=== PATIENT | female | born 1990 | race Caucasian/White ===

== ENCOUNTER 2018-07-17 09:59 | Emergency (ER) | payer OTHER, SELFPAY ==
[2018-07-17 10:08] VITALS: BP 125/78; PULSE 91; RESP 16; TEMP 36.6; O2SAT 97; BMI 36.9
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
[2018-07-17 11:54] VITALS: RESP 18
== END 2018-07-17 11:55 | disposition home or self-care (01) ==
PROVIDERS: Emergency Provider Emergency Medicine; Family Provider Family Medicine; PCP Family Medicine
DX: O9A.219 Injury, poisoning and certain other consequences of external causes complicating pregnancy, unspecified trimester (principal); S06.0X1A Concussion with loss of consciousness of 30 minutes or less, initial encounter; S00.83XA Contusion of other part of head, initial encounter; S00.81XA Abrasion of other part of head, initial encounter; S80.811A Abrasion, right lower leg, initial encounter; S70.311A Abrasion, right thigh, initial encounter; S90.512A Abrasion, left ankle, initial encounter; S71.102A Unspecified open wound, left thigh, initial encounter; S81.802A Unspecified open wound, left lower leg, initial encounter; Z3A.00 Weeks of gestation of pregnancy not specified; R40.2410 Glasgow coma scale score 13-15, unspecified time; V80.42XA Occupant of animal-drawn vehicle injured in collision with car, pick-up truck, van, heavy transport vehicle or bus, initial encounter; Y93.9 Activity, unspecified; Y92.9 Unspecified place or not applicable; Z28.3 Underimmunization status
CPT/HCPCS: 70450; 99284

== ENCOUNTER 2023-03-17 17:30 | Emergency (ER) | payer OTHER, SELFPAY ==
[2023-03-17 17:31] VITALS: BP 111/75; PULSE 90; RESP 18; TEMP 36.4; O2SAT 99; BMI 35.2
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
[2023-03-17] MEDS: Lidocaine 1% /Epi 1:100 (20ml) 20 ML Vial INFILT (17:59)
[2023-03-17] MEDS: Lidocaine/Epi/Tetracaine 50 ML 1 APPLIC TOPICAL (17:59)
--- OUTSIDE RECORDS SUMMARY | 2023-03-17 18:33 | XMS RPT_ITS | CCD ---
Author Name Unknown Address [facility] [address] [place] [address] Organization [facility] Care Team Providers Care Field Spec Name Role Phone SRINIVASA RAI MD Attending Unavailable PHYSICIAN, NONE Primary Care Unavailable PHYSICIAN, NONE Primary Care Physician Unavailab le Medications Current Medications Medication Drug Class(es) Dates Sig (Normalized) Sig (Original) acetaminophen 325 mg oral capsule (1 source) Start: 02-16-2019 Tylenol 325 mg oral capsule Dose : 650 mg =, Oral, q6h, PRN Pain, scale 1-3, 0 Refill(s) Start Date: 02/16/19 Status: Ordered ibuprofen 600 mg oral tablet (1 source) Nonsteroidal Anti-inflammatory Drug Start: 02-16-2019 Motrin Dose : 600 mg = 1 tab(s), Oral, q6h, PRN uterine cramping, 0 Refill(s) Start Date: 02/16/19 Status: Ordered Multivitamins (1 source) Start: 02-14-2019 take 1 tablet by mouth once daily Multivitamins Dose = 1 tab(s), Oral, qDay, 0 Refill(s) Start Date: 02/14/19 Status: Ordered Problems Problem Classification Problem Date Documented Da te Episodic/Chronic Diabetes or abnormal glucose tolerance complicating ; childbirth; or the puerperium (1 source) Gestational diabetes mellitus, class A>2< 02-14-2019 Episodic Immunizations and screening for infectious disease (1 source) Rubella non-immune 02-14-2019 Episodic Other and delivery including normal (1 source) 07-21-2022 Episodic Results Test Name Value Interpretation Reference Range Facil ity Vital Signs Date Time Vital Sign Value Performing Clinician Faci lity 07-21-2022 17:32-0400 Diastolic Blood Pressure Non-Invasive 68 1 SRINIVASA RAI MD [facility] 07-21-2022 17:32-0400 Heart rate 80 /min SRINIVASA RAI MD [facility] 07-21-2022 17:32-0400 Respiratory rate 20 /min SRINIVASA RAI MD [facility] 07-21-2022 17:32-0400 Systolic Blood Pressure Non-Invasive 117 1 SRINIVASA RAI MD [facility] 07-21-2022 16:21-0400 Diastolic Blood Pressure Non-Invasive 67 1 SRINIVASA RAI MD [facility] 07-21-2022 16:21-0400 Heart rate 84 /min SRINIVASA RAI MD [facility] 07-21-2022 16:21-0400 Respiratory rate 20 /min SRINIVASA RAI MD [facility] 07-21-2022 16:21-0400 Systolic Blood Pressure Non-Invasive 109 1 SRINIVASA RAI MD [facility] 07-21-2022 16:15-0400 Diastolic Blood Pressure Non-Invasive 70 1 SRINIVASA RAI MD [facility] 07-21-2022 16:15-0400 Heart rate 76 /min SRINIVASA RAI MD [facility] 07-21-2022 16:15-0400 Respiratory rate 17 /min SRINIVASA RAI MD [facility] 07-21-2022 16:15-0400 Systolic Blood Pressure Non-Invasive 97 1 SRINIVASA RAI MD [facility] 07-21-2022 15:10-0400 Body temperature 98.24 [degF] SRINIVASA RAI MD [facility] 07-21-2022 15:10-0400 Heart rate 68 /min SRINIVASA RAI MD [facility] Encounters Encounter Date Encounter Type Care Provider Facility Start: 07-21-2022 End: 07-21-2022 Emergency department patient visit SRINIVASA RAI MD Facility:B Start: 07-21-2022 End: 07-21-2022 Emergency department patient visit SRINIVASA RAI MD [facility] Payers Date Payer Category Payer Self-pay 1991 Unknown [id number] Social History Date Type Detail Facility Start: 02-14-2019 Tobacco smoking status Never s moked tobacco (finding) [facility] Sex Assigned At Female [facility] Functional Status Date Assessment Result Facility 07-21-2022 Functional Status Independent [facility] spital [facility] 07-21-2022 Functional Status Standard Safet y ID band on, Call device within reach, Bed in low position, Wheels locked [facility] Mental Status Date Assessment Result Facility 07-21-2022 Mental Status Orientation Oriented x 4 [facility] 07-21-2022 Mental Status [facility] Discharge instructions 07-21-2022 Note Date & Type Note Facility 07-21-2022 Hospital Discharg e instructions Patient Education 07/21/2022 17:27:43 Understanding Miscarriage: During a Miscarriage Understanding Miscarriage: During a Miscarriage No two miscarriages are alike. Because of this, your healthcare provider will talk with you about the most appropriate treatment for you. If you re in good health and early in the , your body may expel all the tissue on its own. If your body doesn t expel all the tissue, your healthcare provider may recommend treatment to prevent infection and severe bleeding (hemorrhaging). What happens during miscarriage Some miscarriages happen without any signs or symptoms. Most miscarriages, however, start with bleeding and cramping, which may increase over time. The cramps may get very strong. This is normal when a miscarriage is happening. Cramping widens the passage (cervix) that tissue from the uterus must pass through to leave your body. Your healthcare provider may ask you for a sample of the tissue for lab testing. This is to make sure that the cells being shed from your body are normal. Diagnosis To confirm the miscarriage, your healthcare provider will do a pelvic exam. Your healthcare provider might order a blood test to measure the levels of a hormone (hCG). He or she may also have you get an ultrasound test to find out if all of the tissue has passed from the uterus. If a miscarriage happens very early in the , an ultrasound is not needed. Treatment If any tissue remains in the uterus, your healthcare provider may suggest the following measures depending on your particular situation: Medicine. This is prescribed for you to take at home. The medicine causes the uterus to expel any remaining tissue. Take the medicine exactly as directed. Dilation and curettage (D & C). This procedure is done in your healthcare provider s office or at the hospital. You are given medicine to prevent pain or to allow you to relax or sleep during the procedure. The healthcare provider uses instruments to widen the cervix (dilate). Tissue and blood that line the uterus are then removed (curettage). Be sure you talk to your healthcare provider about the risks and benefits of these treatments. If you have Rh-negative blood If your blood is Rh negative, you may need treatment with Rho(D) immune globulin. This injection prevents substances in your blood from attacking the baby s blood during a future . Your healthcare provider can tell you more. Follow-up care Keep all follow-up appointments. These are needed to make sure that you are healing well. During these visits, mention if you re feeling very sad or depressed. Your healthcare provider can suggest counseling or other resources to help you. When to seek medical care Contact your healthcare provider if you have any of the following: Severe pain in the stomach, pelvis, or low back Vaginal discharge that has a bad odor Bleeding that soaks a new sanitary pad each hour Fever of 100.4 F (38 C) or higher, or as directed by your healthcare provider [phone] [employer]. [address] [place] [address], [place] [address]. All rights reserved. This information is not intended as a substitute for professional medical care. Always follow your healthcare professional's instructions. Follow Up Care 07/21/2022 14:51:15 With:SEGUNDO MORALES Address: DR ERIKA BARRY [address] [place] [phone] When:1-2 days With:Go to emergency room if symptoms worsen Address:Unknown When:2-4 days [facility] Clinical Note 07-21-2022 Note Date & Type Note Facility 07-21-2022 Note Discharge Instructions Thank you for allowing [facility] to assist you with your healthcare needs. The following is important discharge information regarding your hospital visit. Diagnosis from Today's Visit Spontaneous in first trimester Vaginal bleeding - < 20 wks What to Do Next Instructions from Your Care Team Miscarriage. Call [facility] doctor or work car operator in the morning. Return to ED if worse such as excessive bleeding, persistent lightheadedness, fever or significant pain. Your red blood count (hemoglobin) is 10.2 which is evidence of anemia. You should have a repeat hemoglobin measure within the next few days to a week. No qualifying data available. Post Acute Orders No qualifying data available. You Need to Schedule the Following Appointments Follow Up with SEGUNDO MORALES When Within 1-2 days Where: DR ERIKA BARRY [address] [place] [phone] Follow Up with Go to emergency room if symptoms worsen When Within 2-4 days Allergies NKA Medications Please ask your primary doctor or pharmacist before taking any other medication not listed, including over the counter drugs, herbal medications, vitamins and or supplements as they may interact with your home medications. What How Much When Instructions Last Dose Unchanged acetaminophen (Tylenol 325 mg oral capsule) 650 Milligram by mouth Every 6 hours as needed for Pain, scale 1-3 Unchanged ibuprofen (Motrin) 600 Milligram by mouth Every 6 hours as needed for uterine cramping Unchanged multivitamin, ( Multivitamins) 1 tab(s) by mouth Once a day Please take this list to your next doctor s visit. Bring all medications you take, including over the counter medications, herbals and other supplements with you to your doctor s visit. Patients and families are reminded to discard old lists and to update any records with all medication providers or retail pharmacies. Education Materials Understanding Miscarriage: During a Miscarriage No two miscarriages are alike. Because of this, your healthcare provider will talk with you about the most appropriate treatment for you. If you re in good health and early in the , your body may expel all the tissue on its own. If your body doesn t expel all the tissue, your healthcare provider may recommend treatment to prevent infection and severe bleeding (hemorrhaging). What happens during miscarriage Some miscarriages happen without any signs or symptoms. Most miscarriages, however, start with bleeding and cramping, which may increase over time. The cramps may get very strong. This is normal when a miscarriage is happening. Cramping widens the passage (cervix) that tissue from the uterus must pass through to leave your body. Your healthcare provider may ask you for a sample of the tissue for lab testing. This is to make sure that the cells being shed from your body are normal. Diagnosis To confirm the miscarriage, your healthcare provider will do a pelvic exam. Your healthcare provider might order a blood test to measure the levels of a hormone (hCG). He or she may also have you get an ultrasound test to find out if all of the tissue has passed from the uterus. If a miscarriage happens very early in the , an ultrasound is not needed. Treatment If any tissue remains in the uterus, your healthcare provider may suggest the following measures depending on your particular situation: Medicine. This is prescribed for you to take at home. The medicine causes the uterus to expel any remaining tissue. Take the medicine exactly as directed. Dilation and curettage (D & C). This procedure is done in your healthcare provider s office or at the hospital. You are given medicine to prevent pain or to allow you to relax or sleep during the procedure. The healthcare provider uses instruments to widen the cervix (dilate). Tissue and blood that line the uterus are then removed (curettage). Be sure you talk to your healthcare provider about the risks and benefits of these treatments. If you have Rh-negative blood If your blood is Rh negative, you may need treatment with Rho(D) immune globulin. This injection prevents substances in your blood from attacking the baby s blood during a future . Your healthcare provider can tell you more. Follow-up care Keep all follow-up appointments. These are needed to make sure that you are healing well. During these visits, mention if you re feeling very sad or depressed. Your healthcare provider can suggest counseling or other resources to help you. When to seek medical care Contact your healthcare provider if you have any of the following: Severe pain in the stomach, pelvis, or low back Vaginal discharge that has a bad odor Bleeding that soaks a new sanitary pad each hour Fever of 100.4 F (38 C) or higher, or as directed by your healthcare provider [phone] [employer]. [address] [place] [address]. All rights reserved. This information is not intended as a substitute for professional medical care. Always follow your healthcare professional's instructions. Additional Information VACCINATE! IT SAVES LIVES! Members of the community who have not yet received the COVID-19 vaccine and would like to receive it can visit one of [facility] vaccine clinics. There are many vaccine clinic locations within the [facility]. For locations and available times, please visit www.gettheshot.coronavirus.[place].gov/. It is important to note that some COVID mobile vaccine clinics are held outdoors and may be canceled in rainy or stormy conditions. To learn more about pediatric vaccinations (ages 5-11), we invite you to visit the [facility] webpage. [email or web address]/[email or web address]-Frequently-[email or web address] -Questions.html To learn more about the COVID-19 vaccine, we invite you to visit the CDC website for a list of frequently asked questions. https://www.cdc.gov/coronavirus/2019-n cov/vaccines/faq.html [facility] Patient Portal Access Instructions: Stay connected with your healthcare team and access your personal medical information anytime with the [facility] Patient Portal. If you would like a full copy of your medical records please contact the [facility] Medical Records Department Thursday through Thursday between 8a.m. and 4:30p.m. Please follow the directions below to access the portal: 1.Access the email account you provided upon registration to the [facility].2.Look for an invitation email from [facility].3.Open the email and access the invitation link: Accept Invitation to [employer]4.Fill in the required orozco to create your account. Sign into [email or web address] with your username and password that you created in the above steps to stay up to date. You can then view a summary of results, a summary of your visits, and the ability to download your summaries to your computer or send the information securely to a physician. Remember that your healthcare information is confidential, so carefully consider who you will allow to register on the [employer] Patient Portal for access to your information. You can also access the [employer] Patient Portal on the [employer]. Simply click on Health Records under Health Data and then click on the [employer] logo. HOW TO SAFELY DISPOSE OF PRESCRIPTION MEDICATIONS Please use one of the following methods to safely dispose of your unused medications. 1.Use a drug disposal kit: the drug disposal pouch allows you to safely discard your old and unused drugs. Ask your nurse to give you one when you are discharged.2.Visit a local take-back location: Many local pharmacies and police departments have programs that collect old and unwanted prescription drugs. Call your local pharmacy or go to http://Dfmeibao.com.IMT/3I4Tz7k to find one close to you.3.Make use of household items: Use cat litter or old coffee grounds to dispose medications if other options are not available. Mix your drugs with these household products, seal them in an airtight container and throw it into the garbage. Call [facility]: [phone] to be sure your drugs can be disposed of in this way. Some medicines may require a different approach.4.Never flush your medications down the toilet. IF YOU HAVE BEEN PRESCRIBED AN OPIOIDS FOR PAIN If you have been prescribed an opioid (such as hydrocodone, oxycodone or morphine), it is critical to understand the possible side effects and risks of opioid pain medications. Even when taken as directed, opioids can have several side effects including: Tolerance, meaning you might need to take more of a medication for the same pain relief. Nausea, vomiting and/or constipation. Sleepiness, dizziness, dry mouth, confusion, depression or itching. Physical dependence, meaning you have withdrawal symptoms when a medication is stopped ? this can develop within a few days. KNOW YOUR RESPONSIBILITIES It is important to know exactly how much and how often to take the opioid pain medications you are prescribed. Never take opioids in higher amounts or more often than prescribed. Do not combine opioids with alcohol or other drugs that cause drowsiness, such as benzodiazepines, also known as benzos, including diazepam and alprazolam, muscle relaxants or sleep aids. Never sell or share prescription opioids. This is illegal. Store opioids in a secure place and out of reach of others (including children, family, friends and visitors). The last page(s) of this document has been signed and retained as a CHART COPY Signatures Patient Education Materials Understanding Miscarriage: During a Miscarriage Medication Leaflets My discharge plan and instructions have been reviewed and explained to me and I,VILMA SPEARS understand my current condition and have read and understand these discharge instructions. I have received a written copy of the plan/instructions. If I have questions, I am aware that I should contact my doctor. Patient/Perch Mender Signature: _ Date/Time: Relationship to Patient: Witness Name/Signature: Date/Time: [facility] Evaluation + Plan note Note Date & Type Note Facility Evaluation + Plan note No data available for this section [facility] Summary Purpose Family History No Family History Records Found Advance Directives No Advanced Directives Records Found Additional Source Comments INFORMATION SOURCE (unrecogn ized section and content) Patient Care team informatio n (unrecognized section and content) Care Team Personnel Name: PHYSICIAN, NONE Position: Physician Member Role: Primary Care Physician Name: SRINIVASA RAI MD Position: ED Physician Member Role: ED Physician Address: Address: [facility] [address] [place] [address]- Name: Eva Puga RN Position: AO RN Member Role: RN Care Team Related Persons Name: VALE SPEARS Address: [place] [phone] FOR RECORDS PERTAINING TO PATIENTS WHO ARE OR HAVE BEEN ENROLLED IN A CHEMICAL DEPENDENCY/SUBSTANCEABUSE PROGRAM, SOME INFORMATION MAY BE OMITTED. This clinical summary was aggregated from multiple sources. Caution should be exercised in using it in the provision of clinical care. This summary normalizes information from multiple sources, and as a consequence, information in this document may materially change the coding, format and clinical context of patient data. In addition, data may be omitted in some cases. CLINICAL DECISIONS SHOULD BE BASED ON THE PRIMARY CLINICAL RECORDS. [facility]. provides no warranty or guarantee of the accuracy or completeness of information in this document.
[2023-03-17 19:44] VITALS: BP 139/67; PULSE 88; RESP 16; O2SAT 98
[2023-03-17 20:56] VITALS: BP 139/67; PULSE 88; RESP 16; O2SAT 98
== END 2023-03-17 20:57 | disposition home or self-care (01) ==
PROVIDERS: Emergency Provider Emergency Medicine; PCP Family Medicine; Visit Provider Emergency Medicine
DX: O9A.212 Injury, poisoning and certain other consequences of external causes complicating pregnancy, second trimester (principal); S51.811A Laceration without foreign body of right forearm, initial encounter; Z3A.17 17 weeks gestation of pregnancy; S01.81XA Laceration without foreign body of other part of head, initial encounter; V80.928A Occupant of animal-drawn vehicle injured in other transport accident, initial encounter; S09.90XA Unspecified injury of head, initial encounter; S50.811A Abrasion of right forearm, initial encounter
CPT/HCPCS: 12002; 70450; 86900; 86901; 99283